=== PATIENT | male | born 1960 | race Caucasian/White ===

== ENCOUNTER 2019-10-09 13:48 | Inpatient (IN) | payer OTHER ==
[~2019-10-09] VITALS: Ht 177.8 cm; Wt 59.2 kg
[2019-10-09] MEDS ORDERED: REMERON15 M2 PO (14:02)
[2019-10-09] MEDS ORDERED: PROTONIX20 MG PO (14:03)
[2019-10-09] MEDS ORDERED: CARAFATE1 G1 PO (14:03)
[2019-10-09 16:52] VITALS: BP 115/69
[2019-10-09 17:09] VITALS: BP 115/69
[2019-10-09 19:49] VITALS: BP 104/58
[2019-10-10 06:49] LABS: BASO # 0.1 10*3/uL (0.0-0.1); BASO % 0.8 % (0.0-1.0); EOS # 0.2 10*3/uL (0.0-0.4); EOS % 3.7 % (1.0-4.0); HEMATOCRIT 34.2 % (42.0-52.0); LYMPH # 1.8 10*3/uL (1.3-4.4); LYMPH % 28.8 % (27.0-41.0); MEAN CORPUSCULAR HGB 24.9 pg (27.0-31.0); MEAN CORPUSCULAR HGB CONC 30.7 g/dl (33.0-37.0); MEAN PLATELET VOLUME 10.3 fl (9.6-12.3); MONO # 0.9 10*3/uL (0.1-1.0); MONO % 14.8 % (3.0-9.0); NEUT # 3.2 10*3/uL (2.3-7.9); NEUT % 51.7 % (47.0-73.0); PLATELET COUNT AUTOMATED 262 10*3/uL (130-400); RED BLOOD COUNT 4.22 10*6/uL (4.50-5.90); RED CELL DISTRI WIDTH 22.4 % (0-14.5); WHITE BLOOD COUNT 6.1 10*3/uL (4.8-10.8)
[2019-10-10 07:17] VITALS: BP 101/60
[2019-10-10 07:19] LABS: ALBUMIN 3.2 gm/dl (3.1-4.5); ALKALINE PHOSPHATASE 79 U/L (45-117); BUN 12 mg/dl (7-24); CHLORIDE 111 mmol/L (98-107); CHOLESTEROL 145 mg/dL (<200); CREATININE 0.88 mg/dL (0.70-1.30); HDL CHOLESTEROL 53 mg/dl (40-60); LDL CHOLESTEROL 65 mg/dL (9-159); POTASSIUM 3.8 mmol/L (3.5-5.1); SGOT/AST 26 IU/L (3-35); SGPT/ALT 16 U/L (12-78); SODIUM 142 mmol/L (136-145); TRIGLYCERIDES 134 mg/dl (<150); VLDL CHOLESTEROL 27 mg/dL (6-40)
[2019-10-10 07:52] LABS: VITAMIN D, 25-HYDROXY 17.1 ng/mL (30-100)
[2019-10-10 19:33] VITALS: BP 124/70
[2019-10-11 07:45] VITALS: BP 147/66
[2019-10-11 20:00] VITALS: BP 144/72
[2019-10-12 08:00] VITALS: BP 152/80
[2019-10-12 12:26] VITALS: BP 150/67
[2019-10-12 19:38] VITALS: BP 132/66
[2019-10-13 07:46] VITALS: BP 129/61
[2019-10-13 19:49] VITALS: BP 137/77
[2019-10-14 07:45] VITALS: BP 160/86
[2019-10-14] MEDS ORDERED: TRAZODONE50 MG PO (08:17)
== END 2019-10-14 14:02 | disposition home or self-care (01) | DRG 751 ==
LOC: 3N 13:48
PROVIDERS: Registered Nurse; ADMIT Psychiatry & Neurology Psychiatry
DX: F33.2 Major depressive disorder, recurrent severe without psychotic features (principal); F34.1 Dysthymic disorder; F10.10 Alcohol abuse, uncomplicated; E44.0 Moderate protein-calorie malnutrition; E87.8 Other disorders of electrolyte and fluid balance, not elsewhere classified; F41.9 Anxiety disorder, unspecified; G47.00 Insomnia, unspecified; Y90.9 Presence of alcohol in blood, level not specified; M19.90 Unspecified osteoarthritis, unspecified site; G89.29 Other chronic pain; F17.210 Nicotine dependence, cigarettes, uncomplicated; K21.9 Gastro-esophageal reflux disease without esophagitis; E55.9 Vitamin D deficiency, unspecified; D50.9 Iron deficiency anemia, unspecified; Z87.11 Personal history of peptic ulcer disease; Z82.49 Family history of ischemic heart disease and other diseases of the circulatory system; Z80.0 Family history of malignant neoplasm of digestive organs; Z79.899 Other long term (current) drug therapy; Z68.1 Body mass index [BMI] 19.9 or less, adult; R45.851 Suicidal ideations

== ENCOUNTER 2020-01-24 21:26 | Inpatient (IN) | payer OTHER ==
[~2020-01-24] VITALS: Ht 170.1 cm; Wt 59.9 kg
[~2020-01-24 21:26] MED LIST: CARAFATE1 G1 PO; PROTONIX20 MG PO; REMERON15 M2 PO; TRAZODONE50 MG PO
[2020-01-24 21:30] VITALS: BP 178/93
[2020-01-24 22:24] LABS: BASO # 0.1 10*3/uL (0.0-0.1); BASO % 1.2 % (0.0-1.0); EOS # 0.2 10*3/uL (0.0-0.4); EOS % 2.6 % (1.0-4.0); HEMATOCRIT 33.5 % (42.0-52.0); LYMPH # 1.9 10*3/uL (1.3-4.4); LYMPH % 26.3 % (27.0-41.0); MEAN CELL VOLUME 77.2 fl (80.0-94.0); MEAN CORPUSCULAR HGB 25.6 pg (27.0-31.0); MEAN CORPUSCULAR HGB CONC 33.1 g/dl (33.0-37.0); MEAN PLATELET VOLUME 9.5 fl (9.6-12.3); MONO # 0.8 10*3/uL (0.1-1.0); MONO % 10.9 % (3.0-9.0); NEUT # 4.3 10*3/uL (2.3-7.9); NEUT % 58.9 % (47.0-73.0); PLATELET COUNT AUTOMATED 249 10*3/uL (130-400); RED BLOOD COUNT 4.34 10*6/uL (4.50-5.90); RED CELL DISTRI WIDTH 20.1 % (0-14.5); WHITE BLOOD COUNT 7.3 10*3/uL (4.8-10.8)
[2020-01-24 22:39] LABS: ALBUMIN 3.8 gm/dl (3.1-4.5); ALKALINE PHOSPHATASE 86 U/L (45-117); BUN 4 mg/dl (7-24); CHLORIDE 99 mmol/L (98-107); CREATININE 0.67 mg/dL (0.70-1.30); POTASSIUM 3.3 mmol/L (3.5-5.1); SGOT/AST 27 IU/L (3-35); SGPT/ALT 16 U/L (12-78); SODIUM 130 mmol/L (136-145); TOTAL PROTEIN 7.6 gm/dL (6.4-8.2)
[2020-01-24 22:49] LABS: BILIRUBIN NEGATIVE (NEGATIVE); BLOOD NEGATIVE (NEGATIVE); CLARITY CLEAR (CLEAR); COLOR YELLOW (YELLOW); GLUCOSE NEGATIVE (NEGATIVE); KETONE NEGATIVE (NEGATIVE); LEUKO ESTERASE NEGATIVE (NEGATIVE); NITRITE NEGATIVE (NEGATIVE); SPECIFIC GRAVITY 1.005 (1.005-1.030); UROBILINOGEN 0.2 E.U./dl (0.2-1.0)
[2020-01-24 22:54] LABS: RBC 0-2 rbc/hpf (0-2); WBC 0-2 wbc/hpf (0-5)
[2020-01-24 22:58] LABS: URINE AMPHETAMINES < 1000 (1000ng/ml); URINE BARBITURATES < 200 (200ng/ml); URINE BENZODIAZEPINES < 200 (200ng/ml); URINE CANNABINOIDS (THC) < 50 (50ng/ml); URINE COCAINE < 300 (300ng/ml); URINE METHADONE < 300 (300ng/ml); URINE OPIATES < 300 (300ng/ml); URINE PHENCYCLIDINE < 25 (25ng/ml)
--- NOTE | 2020-01-25 00:12 | NUR ---
PT RESTING IN BED AT THIS TIME. CALL LIGHT WITHIN REACH. WILL CONTINUE TO MONITOR.
--- NOTE | 2020-01-25 01:35 | NUR ---
PT RESTING IN BED. NO DISTRESS NOTED. WILL CONTINUE TO MONITOR. CALL LIGHT WITHIN REACH.
--- NOTE | 2020-01-25 02:46 | NUR ---
PT REMAINS RESTING. WILL CONTINUE TO MONITOR.
--- NOTE | 2020-01-25 04:15 | NUR ---
PT REMAINS RESTING. WILL CONTINUE TO MONITOR.
[2020-01-25 05:30] VITALS: BP 176/80
--- NOTE | 2020-01-25 06:07 | NUR ---
PT REMAINS RESTING. WILL CONTINUE TO MONITOR. NO DISTREES NOTED.
[2020-01-25 07:45] VITALS: BP 153/93
--- NOTE | 2020-01-25 10:15 | NUR ---
PATIENT LAYING IN BED RESTING. APPEARS IN NO DISTRESS. WILL CONTINUE TO MONITOR.
[2020-01-25] MEDS ORDERED: ARIPIPRAZOLE5 MG PO (13:41)
[2020-01-25] MEDS ORDERED: ACETAMINOPHEN500 M4 PO (13:41)
[2020-01-25] MEDS ORDERED: DAILY VITE1 EACH PO (13:42)
[2020-01-25] MEDS ORDERED: FEROSUL325 MG PO (13:49)
--- NOTE | 2020-01-25 15:13 | NUR ---
PATIENT TAKEN UP BY KENNA FRANZ AT THIS TIME. REPORT CALLED TO EASTON CRAMER AND SBAR FAXED TO FLOOR.
--- NOTE | 2020-01-25 15:30 | NUR ---
A 59, admitted to 4E, under the services of MELINA Daniels DO with a diagnosis of ALCOHOL ABUSE . Chief complaint is ALCOHOL WITHDRAWL. Patient arrived via bed from ER. Monitor applied. Initial assessment completed. Vital signs taken and recorded. MELINA DANIELS DO notified of admission to the unit. Orders received. See assessment for past medical history, medications and allergies. Patient and/or family oriented to unit. [facility] visitation policy reviewed. Clothing/patient valuable form completed. EASTON SERNA
[2020-01-25 16:00] VITALS: BP 165/93
--- NOTE | 2020-01-25 16:17 | NUR ---
PT MEDICATED WITH PRN ATIVAN FOR C/O INCREASED ANXIETY AND VISIBLE TREMORS. WILL MONITOR.
--- NOTE | 2020-01-25 17:00 | NUR ---
PRN ATIVAN EFFECTIVE. PT ASLEEP AT THIS TIME.
--- NOTE | 2020-01-25 19:39 | NUR ---
ASSESSMENT COMPLETE AT THIS TIME WITH NO INCIDENCE. PT VOICES NO COMPLAINTS. RESPIRATIONS REGULAR AND RELAXED. CALL LIGHT WITHIN REACH OF PATIENT, WILL CONTINUE TO MONITOR.
[2020-01-25 20:00] VITALS: BP 157/80
[2020-01-26] VITALS: BP 165/80
--- NOTE | 2020-01-26 05:09 | NUR ---
Patient sleeping. Respirations relaxed and easy. ELISEO Moss
[2020-01-26 06:38] LABS: BASO % 0.6 % (0.0-1.0); EOS # 0.2 10*3/uL (0.0-0.4); EOS % 2.8 % (1.0-4.0); HEMATOCRIT 34.5 % (42.0-52.0); LYMPH # 1.1 10*3/uL (1.3-4.4); LYMPH % 17.9 % (27.0-41.0); MEAN CELL VOLUME 79.7 fl (80.0-94.0); MEAN CORPUSCULAR HGB 25.2 pg (27.0-31.0); MEAN CORPUSCULAR HGB CONC 31.6 g/dl (33.0-37.0); MEAN PLATELET VOLUME 10.1 fl (9.6-12.3); MONO # 0.6 10*3/uL (0.1-1.0); MONO % 8.6 % (3.0-9.0); NEUT # 4.4 10*3/uL (2.3-7.9); NEUT % 69.9 % (47.0-73.0); PLATELET COUNT AUTOMATED 202 10*3/uL (130-400); RED BLOOD COUNT 4.33 10*6/uL (4.50-5.90); RED CELL DISTRI WIDTH 20.2 % (0-14.5); WHITE BLOOD COUNT 6.4 10*3/uL (4.8-10.8)
--- NOTE | 2020-01-26 07:00 | NUR ---
ARRIVED ON SHIFT,RECEIVED REPORT FROM OFF GOING NURSE, ASSUMED CARE OF PATIENT.
[2020-01-26 07:07] LABS: ALBUMIN 3.2 gm/dl (3.1-4.5); ALKALINE PHOSPHATASE 87 U/L (45-117); BUN 9 mg/dl (7-24); CHLORIDE 107 mmol/L (98-107); CREATININE 0.74 mg/dL (0.70-1.30); POTASSIUM 3.5 mmol/L (3.5-5.1); SGOT/AST 20 IU/L (3-35); SGPT/ALT 13 U/L (12-78); SODIUM 138 mmol/L (136-145); TOTAL PROTEIN 6.8 gm/dL (6.4-8.2)
--- NOTE | 2020-01-26 07:30 | NUR ---
INTRODUCED SELF TO PATIENT, BED IN LOW POSITION, WHEEL LOCKS ENGAGED, SIDE RAILS UP X 2 FOR TURNING AND REPOSITIONING, CALL LLIGHT WITHIN REACH, C/O OF BODY ACHES, AND PAIN AND NAUSEA, NO OTHER NEEDS VOICED AT THIS TIME. WHITE BOARD UPDATED.
--- NOTE | 2020-01-26 07:45 | NUR ---
MEDICATED FOR WITH ROBAXIN, TYLENOL, AND ZOFRAN FOR WITHDRAWL SYMPTOMS.
[2020-01-26 08:00] VITALS: BP 150/80
--- NOTE | 2020-01-26 08:28 | NUR ---
EDICATED WITH LORAZEPAM 1 MG, PER DR. SARMIENTO VERBAL REQUEST TO HELP DECREASE HR.
--- NOTE | 2020-01-26 08:45 | NUR ---
TYLENOL,ROBAXIN, AND ZOFRAN EFFECTIVE EVIDENCE BY PATIENT RESTING QUIETLTY WITH EYES CLOSED.
--- NOTE | 2020-01-26 13:42 | NUR ---
PATIENT RESTING QUIETLY WITH EYES CLOSED. LORAZEPAM EFFECTIVE.
--- NOTE | 2020-01-26 15:00 | NUR ---
[place] STAFF IN TO SEE PATIENT. PATIENT IS NOT INTERESTED IN [facility] AT THIS TIME. [facility] STAFF PROVIDED PATIENT WITH SOME REFERRAL OPTIONS AND A LIST A AA MEETINGS IN HIS LOCAL AREA. ELISEO LANE B.A. INTAKE COORDIANTOR
--- NOTE | 2020-01-26 15:13 | NUR ---
WENT INTO PATIENTS ROOM, REVIEWED OUR POLICY ON [facility] PATIENTS AND PERSONAL ITEMS, HE WAS AGREEABLE, SUPPLIED PATIENT WITH GOWN, AND REQUESTED HE CHANGE, HE PUT GOWN ON OVER HIS CLOTHES, I ADVISED HE WOULD HAVE TO REMOVE HIS CLOTHING. HE SAID TO HELL WITH THAT AND VERSED IM JUST GOING TO LEAVE. PATIENT SIGNED AMA FORM, ESCORTED OUT BY HOSPITAL SECURITY, DR. MCMULLEN ADVISED.
[2020-01-26 16:00] VITALS: BP 151/75
--- NOTE | 2020-01-26 19:30 | NUR ---
PT REFUSING TO WEAR MONITOR AND STATES "NOTHING IS WRONG WITH MY HEART, I DONT NEED TO WEAR IT"
[2020-01-26 20:00] VITALS: BP 142/61
--- NOTE | 2020-01-26 20:50 | NUR ---
IV started right hand with #22 angiocath after 1 attempts. The IV site was prepped with Chloraprep. Heparin lock attached. Sterile dressing applied. Patient tolerated precedure well. Procedure performed according to [facility] policy & procedure. ELISEO العراقي
--- NOTE | 2020-01-26 20:51 | NUR ---
PRN IV ZOFRAN GIVEN FOR COMPLAINTS OF NAUSEA. PRN TYLENOL PO GIVEN FOR COMPLAINTS OF HEAD ACHE. WILL CONTINUE TO MONITOR FOR EFFECTIVNESS
[2020-01-27] VITALS: BP 176/87
--- NOTE | 2020-01-27 07:00 | NUR ---
ARRIVED ON SHIFT, REPORT RECEIVED FROM OF GOING NURSE, ASSUMED CARE OF PATIENT.
--- NOTE | 2020-01-27 07:30 | NUR ---
Shift chart check completed.
--- NOTE | 2020-01-27 08:05 | NUR ---
PATIENT CAME OUT IN [place] AND STATED, I AM LEAVING AMA AND PROCEEDED TO WALK DOWN THE HALLWAY BACK TO ROOM, HE WAS REDIRECTED TO ROOM FOR IV REMOVAL, DR. SARMIENTO WENT IN TO SSE PATIENT, PT REFUSED TO ANSWER ANY QUESTIONS, HE WAS AGREEABLE TO SIGN AMA FORM AND HAVE IV REMOVED, CHECKED FOR INVENTORY SHEET NONE ON CHART, PATIENT VERSED HE DIDNT HAVE ANYTHING WITH HIM, HE LEFT WITH [facility], [facility] AND [facility], AFTER LEAVING ROOM,PA FOUND SHIRT, SHOES, SOCKS AND HAT, SECURITY NOTIFIED, RECEIVED CALL FROM XRAY, PATIENT WAS THERE, RETURNED ITEMS TO PATIENT, ESCORTED OUT BY SECURITY. SOIL SCIENTIST NOTIFIED BY WEIGHT AND TEST BAR CLERK. [place] CRUZ.
--- NOTE | 2020-01-27 08:40 | NUR ---
CALL PLACED TO TRANSPORTATION PROVIDED BY [facility] [phone], NOTIFIED OF PATIENT NEED FOR TRANSPORT SPOKE TO ARSLAN DEVLIN WOULD BE HERE BETWEEN NOW AND 1145, CONFIRMATION NUMBER [id number]. CALL PLACED TO YAEL, PATIENT IN LOBBY, AND HE WILL LET HIM KNOW.
--- NOTE | 2020-01-27 10:25 | NUR ---
patient left ama prior to being seen by case managment
== END 2020-01-27 08:59 | disposition left against medical advice (07) | DRG 770 ==
LOC: ED 21:26 → EDHOLD 01-25 13:17 → 4E 01-25 13:17
PROVIDERS: Emergency Medicine; Podiatrist Foot & Ankle Surgery; ADMIT Internal Medicine
DX: F10.239 Alcohol dependence with withdrawal, unspecified (principal); E87.2 Acidosis; E87.1 Hypo-osmolality and hyponatremia; E87.6 Hypokalemia; D50.9 Iron deficiency anemia, unspecified; K25.9 Gastric ulcer, unspecified as acute or chronic, without hemorrhage or perforation; K21.9 Gastro-esophageal reflux disease without esophagitis; F41.9 Anxiety disorder, unspecified; K58.9 Irritable bowel syndrome, unspecified; E55.9 Vitamin D deficiency, unspecified; F10.229 Alcohol dependence with intoxication, unspecified; Y90.8 Blood alcohol level of 240 mg/100 ml or more; F17.210 Nicotine dependence, cigarettes, uncomplicated; G89.29 Other chronic pain; Z53.29 Procedure and treatment not carried out because of patient's decision for other reasons; Z79.899 Other long term (current) drug therapy; Z82.49 Family history of ischemic heart disease and other diseases of the circulatory system; Z80.0 Family history of malignant neoplasm of digestive organs